=== PATIENT | male | born 1950 | race Caucasian/White ===

== ENCOUNTER → 2023-12-27 08:22 | Outpatient (REF) | payer MEDICARE, OTHER, SELFPAY ==
[2023-12-27 09:54] LABS: Glycohemoglobin (HgbA1c) 10.3 % (4.0-5.6)
[2023-12-27 10:28] LABS: Blood Urea Nitrogen 45 mg/dl (9-20); Calcium 9.7 mg/dl (8.4-10.2); Carbon Dioxide 27 mmol/L (22-30); Chloride 97 mmol/L (98-107); Glucose 199 mg/dl (70-99); Potassium 4.8 mmol/L (3.5-5.1); Sodium 139 mmol/L (135-145); eGFR 48.85
== END ==
LOC: REG 08:22
PROVIDERS: ATTENDING PHYSICIAN Family Medicine
DX: E11.8 Type 2 diabetes mellitus with unspecified complications (principal); I10 Essential (primary) hypertension; E78.2 Mixed hyperlipidemia; I25.10 Atherosclerotic heart disease of native coronary artery without angina pectoris
CPT/HCPCS: 36415; 80048; 83036

== ENCOUNTER → 2024-05-28 08:22 | Outpatient (REF) | payer MEDICARE, OTHER, SELFPAY ==
[2024-05-28 10:12] LABS: PSA, Total - Diagnostic < 0.06 ng/ml (0.0-4.0)
== END ==
LOC: REG 08:22
PROVIDERS: ATTENDING PHYSICIAN Physician Assistant Surgical; FAMILY PHYSICIAN Family Medicine
DX: C61 Malignant neoplasm of prostate (principal)
CPT/HCPCS: 36415; 84153

== ENCOUNTER 2024-10-07 10:21 | Emergency (ER) | payer MEDICARE, OTHER, SELFPAY ==
[2024-10-07 10:26] VITALS: BP 129/82
--- NOTE | 2024-10-07 10:55 | ED.GENMED ---
History of Present Illness
General
Chief Complaint: Allergic Reaction
Source: patient and spouse
Exam Limitations: none
Time Seen by Provider: 10/07/24 10:34
History of Present Illness
History of Present Illness:
74-year-old male 1 to 2 days of left and then right eye swelling no pain no itching no new soaps no exposures that he knows of no pain no visual changes no headache no fever no drainage
Past History
Past History
ED Past Medical History: HTN, Hypercholesterolemia, NIDDM and AK (1996)
Social History
Tobacco: Non-smoker
Alcohol: None
Drug: None
Personal:
Living: with family
Employment: Retired
Review of Systems
Review of Systems
All Other Systems: Not applicable
Constitutional: Denies fever, fatigue or chills
EENT: Reports other (Swelling around the eyes no eye drainage no eye pain no fever)
Cardiac: Reports no symptoms
ABD/GI: Reports no symptoms
: Reports no symptoms
Skin: Denies itching or rash
Phy Exam
Physical Exam
Physical Exam:
Physical Exam
General: no apparent distress, not acutely ill
Neck: Allergic appearing swelling around the left eye not involving the sclera similar but less appearing around the right eye, pupils round reactive no proptosis no pain no drainage no warmth
Heart: Regular
Lungs: no acute respiratory distress. clear bilaterally
Neuro: alert and oriented. no focal neurological deficits
Skin: no rash
Psychiatric: well kept. interactive and cooperative
Extremities: no edema.
Course
Orders/Labs/Results
Orders:
Orders
10/07/24 10:51
Ice Pack-Treatment DIRECTED
Location: face
Diphenhydramine [Benadryl] 25 mg PO NOW STA
Prednisone [Deltasone] 40 mg PO NOW STA
Vital Signs
Initial and Last Documented VS:
Initial Vital Signs
Temp Pulse Resp BP Pulse Ox
98.6 F 84 20 129/82 99
10/07/24 10:26 10/07/24 10:26 10/07/24 10:26 10/07/24 10:10/07/24 10:26
Last Documented Vital Signs
Temp Pulse Resp BP Pulse Ox
98.6 F 84 20 129/82 99
10/07/24 10:26 10/07/24 10:26 10/07/24 10:26 10/07/24 10:10/07/24 10:55
MDM/Problems Addressed
Differential Diagnosis Includes:
Allergic dermatitis infectious idiopathic
MDM/Problems Addressed:
Swelling
Chronic conditions affecting care: DM
Acute Exacerbation and/or Progression of Chronic Illness: DM
*Pulse Oximetry
SaO2: 99
Oxygen Mode of Delivery: Room air
Patient hypoxic: no
*Critical Care Note
Total Time (30-74mins, 75-104mins- exclusive of procedures): Not Applicable
ED Attending Note
-
Portions of this chart may have been created with voice recognition software.� Occasional wrong word or��sound alike� substitutions may have occurred due to the inherent limitations of voice recognition software.
Discharge Plan
Departure
Patient Disposition: Home (Routine Discharge)
Date of Disposition: 10/07/24
Time of Disposition: 10:51
Patient with high blood pressure during this ER visit?: No
Condition: Good
Discharge Problem:
Allergic dermatitis
Prescriptions:
New
diphenhydramine HCl [Benadryl] 25 mg capsule
25 mg PO TID PRN (Reason: allergic reaction) Qty: 20 0RF
methylprednisolone [Medrol (Zen)] 4 mg tablets,dose pack
See Rx Instructions .ROUTE .COMPLEX Qty: 21 0RF
Rx Instructions:
for 6 days
No Action
atorvastatin 20 MG tablet
20 mg PO DAILY
lisinopril-hydrochlorothiazide 1 EACH tablet
1 ea PO DAILY
metoprolol tartrate 100 MG tablet
100 mg PO BID
aspirin [Aspir-Low] 81 MG tablet,delayed release (DR/EC)
81 mg PO DAILY
glimepiride 4 MG tablet
4 mg PO DAILY
sitagliptin phos-metformin [Janumet] 1 EACH tablet
1 ea PO BID
[id number] [Men 50 Plus Multivitamin] 1 EACH tablet
1 ea PO DAILY
clindamycin HCl 300 MG capsule
300 mg PO TID Qty: 30 0RF
Interventions
Interventions:
*Risk Screen - Suicide Last Done: 10/07/24 10:29
*General Assessment Last Done: 10/07/24 10:37
*Neglect/Abuse Screening Last Done: 10/07/24 10:29
*ED- Fall Risk Assessment Last Done: 10/07/24 10:37
*ED COVID-19 Vaccine History Last Done: 10/07/24 10:37
ED- Cardiac Assessment Last Done: 10/07/24 10:41
ED- Pulmonary Assessment Last Done: 10/07/24 10:41
Discharge Date and Time
Print Language: LATVIAN
[2024-10-07] MEDS: DELTASONE 40 MG PO (11:02)
[2024-10-07] MEDS: BENADRYL 25 MG PO (11:03)
== END 2024-10-07 11:08 | disposition home or self-care (01) ==
LOC: EMR 10:21
PROVIDERS: EMERGENCY PHYSICIAN Emergency Medicine
DX: L23.9 Allergic contact dermatitis, unspecified cause (principal); E11.9 Type 2 diabetes mellitus without complications; E78.00 Pure hypercholesterolemia, unspecified; I10 Essential (primary) hypertension; I25.2 Old myocardial infarction
CPT/HCPCS: 99283